=== PATIENT | female | born 1960 | race Caucasian/White ===

== ENCOUNTER 2021-01-12 07:51 | Day surgery (SDC) | payer OTHER ==
[2021-01-12] MEDS ORDERED: Ringers Lactate 1,000 ML IV ONE (08:51)
[2021-01-12] MEDS ORDERED: LIDOCAINE 1% MPF 5 ML VIAL ONE (09:17)
[2021-01-12] MEDS ORDERED: propofoL 200 MG/20 ML VIAL IV ONE ×3 (09:17→10:39)
--- NOTE | 2021-01-12 10:35 | ENDO RPT ---
[address], [address] COLONOSCOPY PROCEDURE REPORT EXAM DATE: 01/12/2021 PATIENT NAME: Aleja Ferrer MR #: [id number] BIRTHDATE: 1960 ATTENDING: Lazarus Lomax DR STATUS: outpatient SENIOR RESEARCH SCIENTIST: Gisell BHATIA and Valeria Mcclelland CST INDICATIONS: The patient is a 60 yr old Female here for a colonoscopy due to colon cancer screening PROCEDURE PERFORMED: Flexible Sigmoidoscopy MEDICATIONS: Per Anesthesia. ESTIMATED BLOOD LOSS: None CONSENT: The patient understands the risks and benefits of the procedure and understands that these risks include, but are not limited to: sedation, allergic reaction, infection, perforation and/or bleeding. Alternative means of evaluation and treatment include, among others: physical exam, x-rays, and/or surgical intervention. The patient elects to proceed with this endoscopic procedure. DESCRIPTION OF PROCEDURE: During intra-op preparation period all mechanical medical equipment was checked for proper function. Hand hygiene and appropriate measures for infection prevention was taken. Procedure, possible complications, alternatives including, but not limited to possibility of bleeding, perforation, tear, infection, sepsis, need for surgery, need for blood transfusion, were explained to the patient. After the risks, benefits and alternatives of the procedure were thoroughly explained, Informed consent was verified, confirmed and timeout was successfully executed by the treatment team. The patient was placed in the left lateral position. A digital rectal exam was performed and revealed internal hemorrhoids. After appropriate level of anesthesia, the scope was passed. The EC-[id number] ([id number]) and [id number] ([id number]) endoscope was introduced through the anus and advanced to the hepatic flexure. The quality of the prep was poor. The instrument was then slowly withdrawn as the colon was fully examined. Scope withdrawal time was 60 minutes. COLON FINDINGS: Small internal hemorrhoids were found. Diverticula was found in the sigmoid colon. The opening was small. Retroflexed views revealed no abnormalities. The scope was then completely withdrawn from the patient and the procedure terminated. ADVERSE EVENTS: There were no complications. IMPRESSIONS: 1. Small internal hemorrhoids 2. Diverticula in the sigmoid colon RECOMMENDATIONS: 1. avoid NSAIDS for 2 weeks 2. follow-up: office 1 week(s) 3. Monitor for any evidence of rectal bleeding. 4. yearly hemoccult starting in 4 years 5. yearly hemoquant RECALL: Return in 2 week(s) for Colonoscopy. inadequate, unable to complete Lazarus Lomax DR eSigned: Lazarus Lomax DR 01/12/2021 10:35 AM cc: CPT CODES: ICD9 CODES:
[2021-01-12] MEDS ORDERED: NA CHLORIDE 0.9% 1,000 ML ONE (10:39)
[2021-01-12 11:38] VITALS: TEMP 97.1; O2SAT 100
[2021-01-12 11:40] VITALS: BP 134/65
== END 2021-01-12 11:15 | disposition home health service (06) ==
LOC: OR 07:51
PROVIDERS: ATTEND Surgery
PROC: 0DJD8ZZ Inspection of Lower Intestinal Tract, Via Natural or Artificial Opening Endoscopic (ICD-10-PCS; principal; 2021-01-12 09:45)
DX: Z12.11 Encounter for screening for malignant neoplasm of colon (principal); K64.8 Other hemorrhoids; K57.30 Diverticulosis of large intestine without perforation or abscess without bleeding; Z53.8 Procedure and treatment not carried out for other reasons; Z20.822 Contact with and (suspected) exposure to COVID-19
CPT/HCPCS: 45378; U0003; J2704 ×3; J7120; J7030

== ENCOUNTER 2021-02-24 08:14 | Day surgery (SDC) | payer OTHER ==
[2021-02-20 14:53] LABS: Absolute Lymphocytes (CBC) 1.6 K/uL (0.7-4.9); Hematocrit 38.4 % (36.0-45.0); Lymphocytes % 19.5 % (15.3-44.8); MPV 8.5 fL (7.6-11.3); RBC Red Blood Cell Count 4.15 M/uL (3.86-4.86)
[2021-02-20 14:59] LABS: Urine Appearance CLEAR (Clear); Urine Bilirubin NEGATIVE (Negataive); Urine Blood 2+ (Negative); Urine Color YELLOW (Yellow); Urine Glucose NEGATIVE (Negative); Urine Protein NEGATIVE (Negative); Urine Urobilinogen 0.2 mg/dL (0.2-1.0); Urine pH 5.5 (5.0-7.0)
[2021-02-20 15:04] LABS: BUN Blood Urea Nitrogen 23 mg/dL (7-18); Bicarbonate 27 mmol/L (21-32); Glucose Level 75 mg/dL (74-106); Sodium Level 139 mmol/L (136-145)
[2021-02-20 15:09] LABS: Protime INR 0.97
[2021-02-20 15:27] LABS: Urine Microscopic Reflex ORDER UMIC
[2021-02-20 15:32] LABS: Urine Bacteria 20-50 /HPF (<20)
[2021-02-24] MEDS ORDERED: LIDOCAINE 2% MPF 5 ML VIAL ONE ×2 (08:27→10:19)
[2021-02-24] MEDS ORDERED: ONDANSETRON 4 MG/2 ML VIAL ONE ×3 (08:27→11:25)
[2021-02-24] MEDS ORDERED: ROCURONIUM 50 MG/5 ML VIAL IV ONE ×2 (08:27→10:19)
[2021-02-24] MEDS ORDERED: FENTANYL CITR 100 MCG/2 ML ONE ×3 (08:27→11:43)
[2021-02-24] MEDS ORDERED: MIDAZOLAM HCL 2 MG/2 ML INJ ONE ×2 (08:27→10:19)
[2021-02-24] MEDS ORDERED: propofoL 200 MG/20 ML VIAL IV ONE ×2 (08:27→10:19)
[2021-02-24] MEDS ORDERED: CEFAZOLIN/SWI 2gm 2 GM/20 ML SYR ONE (08:39)
[2021-02-24] MEDS ORDERED: Ringers Lactate 1,000 ML IV ONE ×2 (08:39→11:13)
[2021-02-24] MEDS: VASOPRESSIN 20 UNIT/ML VIAL ONE ×2 (10:31→11:00)
[2021-02-24] MEDS ORDERED: NA CHLORIDE 0.9% 1,000 ML ONE (10:32)
[2021-02-24] MEDS ORDERED: NA CHLORIDE 0.9% 100 ML IV ONE (10:32)
[2021-02-24] MEDS ORDERED: CEFAZOLIN/SWI 1gm 1 GM/10 ML SYR ONE (10:32)
[2021-02-24] MEDS ORDERED: NS 0.9% VIAL 10 ML ONE ×2 (10:44→12:52)
[2021-02-24] MEDS ORDERED: VECURONIUM 10 MG/VIAL IV ONE ×2 (10:44→12:52)
[2021-02-24] MEDS ORDERED: dexAMETHasone 10 MG/ML VIAL ONE (11:09)
[2021-02-24] MEDS ORDERED: KETOROLAC 30 MG/ML INJ ONE (11:09)
[2021-02-24] MEDS ORDERED: GLYCOPYRROLATE 0.2 MG/ML SYR ONE (12:56)
[2021-02-24] MEDS ORDERED: NEOSTIGMINE 1 MG/ML -5 ML ONE (12:56)
[2021-02-24] MEDS ORDERED: ALBUTEROL INHALER 60 PUFF/8 GM IH ONE (13:20)
[2021-02-24] MEDS ORDERED: HYDROCODONE/APAP 5/325 MG TAB ONE (15:15)
[2021-02-24 15:22] VITALS: TEMP 99
[2021-02-24 17:05] VITALS: BP 108/55
[2021-02-24 17:11] VITALS: O2SAT 95
--- NOTE | 2021-03-08 02:53 | OP ---
Date of Procedure: 02/24/2021 Surgeon: Daphne Fatima MD Environmental Services Manager: Cherie Whyte. Preoperative Diagnoses: Stage III posterior wall prolapse, perineal body defect, stress urinary inco ntinence. Postoperative Diagnoses: Stage III uterovaginal prolapse, posterior wall prolapse, posterior enteroc dominick, perineal body defect, and stress urinary incontinence. Procedures Performed: 1.Right sacrospinous ligament fixation and cervical colpopexy. 2.Posterior wall repair and posterior enterocele repair (rectocele and posterior enterocele repair). 3.Perineorrhaphy and cystoscopy. 4.Mid urethral sling, TVT-O. Anesthesia: General endotracheal. Estimated Blood Loss: 100. Urine Output: 100. Specimens: None. Complications: None. Drains: Cardona catheter and vaginal packing. Condition: Stable. Findings: Large posterior enterocele was noted. She had a site-specific defect of the attachment of the proximal rectovaginal septum from the pericervical ring. The cysto at the end was negative. He r POP-Q prior to the start of the procedure, -2, -2, -1, 5, moderate 0, -1, +3, 0, and after the proc edure was complete, her anterior vaginal wall was straightened out, apex was -8, and posterior wall d efect was completely reduced. Indications: The patient is a 60-year-old female, who presented with vaginal bulge symptoms, worseni ng over a long period of time, also has some defecatory dysfunction, both due to motility abnormaliti es as well as evacuation problems. She also had complaints of stress urinary incontinence. She was evaluated with urodynamics and cystoscopy in the office, which were indicative of the same. She was counseled on the alternatives including a pessary for surgery, surgical options of vaginal repairs. Hysterectomy was not a suitable procedure as this would not change the way that her prolapse could be repaired. So, the uterus was evaluated to see if there is any pathology in the absence of postmenop ausal bleeding. She did not need any of these procedures. She was counseled on the mid urethral sli ng option and pelvic floor muscle therapy was started, and she did well during the therapy and had de finitely increased muscle tone and knowledge of the use of her pelvic floor muscles. She wanted to proceed with the surgical treatment option. She understood that the outcome would not improve the frequency of her bowel movements, mostly evacuation difficulties she encounters and she w as taken to the OR. Procedure In Detail: A 2 g of Ancef were given. Her daughter was present at the preop. We discusse d about the procedure again, recovery, expectations, and prognosis. She was then taken back to the O R. A 2 g of Ancef were given. She was placed in supine fashion on the operating table. General ane sthesia was given. She was placed in a dorsal lithotomy position and pelvic exam was performed. The POP-Q is -2, -2, -1, 5, moderate, 7, -1, +3, and 0. Plan was to perform an apical repair with the r ight sacrospinous fixation colpopexy, reattach the rectovaginal septum since it appeared to be an api jorge defect and repair of the perineal body. Biologic graft was needed. It was on standby. Lower abdomen, vulva, vagina, and perineum were prepped and draped in a sterile fashion. Cardona was p laced to drain the bladder and retracted superiorly after clamping it. Then, 2 Allis clamps were bea wai on the cervix. Posterior vaginal wall was assessed at the medial ends of the hymen, which were s eparated further. Allis clamps were placed, 1 in the mid posterior wall, and dilute vasopressin was injected at least 30 cc in the midline as well on the sides. A brenden shaped vaginal epithelial inc ision was made with a 15 blade in the distal half of the canal joining at the proximal part of the ve stibule. Then, vaginal epithelium and subepithelium was excised from the connective tissue keeping t his very thin and leaving the rectovaginal septal connective tissue together. The vaginal epithelial edges from the proximal parts were held with Allis clamps and connective tissue was dissected away a nd the rectovaginal septum was completely dissected free and it had no sideways detachment defect. D istally, there appeared to be perineal body defect and the rectovaginal septum appeared to be separat ed partially from the perineal body. Once the dissection was carried into the top half of the vagina l canal in the center, the enterocele was very evident. The enterocele was dissected free all the wa y to the pericervical ring. Once the enterocele was completely identified in its full extent and was dissected and exposed, then enterocele repair was performed with 2-0 Vicryl stitch in a pursestring fashion x2. Once this enterocele was completely reduced, then the proximal rectovaginal septum of th e connective tissue was clearly visible without any detachment on the sides, only detached from the p ericervical ring. So at this time, plan was to find the distal uterosacral ligaments or the remnants of it, which were easily identifiable after the cervix was held on the Allis clamps and tied superio rly. Then, the areas of the uterosacral ligament were clamped with Allis clamps. Then, plan was to not do a bilateral fixation, but do a unilateral fixation with reattachment of the septum here. So, the right pararectal space was dissected by going on top of the connective tissue in that plane towar ds the ischial spine. Once this was detached and spared, the pararectal space was entered. Then, th e sacrospinous ligament was cleaned by sweeping the fingers lateral to medial and posteriorly towards the coccyx. Once the rectum was cleared from this area and the connective tissue was cleared to exp ose the sacrospinous ligament in the coccygeus muscle. Then in mid ligament, I was able to get the C apio device, Prolene suture was placed, then another 1 was placed lateral to it between the ischial s pine and the stitch, which was at least 1 to 2 cm from the ischial spine. Once both of these sutures were placed through the ligament, they were held on 2 separate hemostats, curved and straight, and m arked medial and lateral. Then, the next step was to reattach these to the distal uterosacral ligame nts in the pericervical ring. Each of the sutures were passed through both. Then, the distal rectov aginal septum was taken with a 2-0 PDS and reattached the pericervical ring taking the more left late ral aspect of the distal septum. This was attached here, so that when this was all deviated that the re would not be large left paravaginal posterior wall defect. Once these PDS sutures were placed fro m the proximal septum to the paracervical ring, these were held on clamps as well retracting inferior ly. The vaginal epithelium was drawn down in order to perform a pull-down procedure advancing the va ginal epithelium over the defect already exposed. Then once the vaginal closure was started with a 2 -0 Vicryl in a continuous running fashion about 1 cm running this, then went ahead and tied the PDS s utures of the septum to the pericervical ring, cut these knots, then took the Prolene sutures all the way to the uterosacral and tied both of them without leaving a bridge or a gap between the cervix an d the ligament. Once this was done, there was an excellent pull-up and there was a lift of the perin eal body as well. Then, vaginal epithelial closure was performed with a 2-0 Vicryl in a continuous r unning horizontal mattress fashion. The trimming and going to the right and left lateral aspects of the distal wall was done, so that there was good apposition without excessive tissue of the vaginal e pithelium. Once this was trimmed, a transverse closure was started as well after the vertical closur e was complete. Then once a centimeter of the transverse vaginal epithelial closure was done, then w ent ahead and dissected the perineal body as the perineal body was repaired with three 2-0 Vicryl int errupted sutures having a finger in the rectum, making sure that I was able to get good bites from th e lateral aspects in the midline. Once this was done, did not go as far as the levators, the deep tr ansverse perineum were dissected and brought together. After these 3 sutures were tied, the gloves w ere changed and the transverse incision was closed from [id number] and the perineal body was closed with the help of 3-0 Vicryl in a subcutaneous and subcuticular fashion and knot tied inside the vest ibule. Rectal exam was negative for any sutures in the rectum. No injury noted. Same thing at the sacrospinous and was palpated through the rectum. After gloves were changed, mid urethral area was held with 2 Allis clamps, injected with dilute vasop ressin on the midline as well as on the both sides. The dissection was performed underneath the conn ective tissues going towards the ipsilateral obturator space, hugging the inferior pubic ramus, and e ntering into 45 degree angle to the horizontal and vertical planes. Obturator space was entered. Th e tips of the scissors were opened up and the track was widened. Similar dissection on both sides. Then, the wing guide was placed on the right side and spike was passed. The exit point was 2 cm late ral to the groin fold above, a centimeter higher than the horizontal line drawn at the level of the e xternal meatus, at least 2 cm below the adductor tendon. On the right side, similar pass and on the left side as well without any problems. Then, the plastic dilator and sheath and mesh were cut and K daniel clamps holding this tensioned the sling with nets in the middle. Then, the plastic sheath was p ulled out and the mesh trimmed flush with the skin. The skin closed with Dermabond and vaginal epith elium closed with 3-0 Vicryl in a continuous running fashion. Cardona was removed. Cystoscopy was per formed. Excellent jets of urine from both ureteric orifices. No evidence of any trauma to the bladd er and no evidence of any mesh. Cardona was replaced. Vaginal packing was done loosely. She was chang alexandra from anesthesia and taken to PACU in stable condition. Plan was discharged the same day and a voiding trial later. The patient tolerated the procedure well. EBL was minimal, 100. Her daughter was debriefed on the findings and the procedure and she was discharged home the same day. RAEANN/MARCOS Voice ID: [id number] Report ID: [id number]
== END 2021-02-24 16:50 | disposition home or self-care (01) ==
LOC: PRE 08:14
PROVIDERS: ATTEND Obstetrics & Gynecology
PROC: 0HQ9XZZ Repair Perineum Skin, External Approach (ICD-10-PCS; 2021-02-24)
PROC: 0TSD0ZZ Reposition Urethra, Open Approach (ICD-10-PCS; 2021-02-24)
PROC: 0USG7ZZ Reposition Vagina, Via Natural or Artificial Opening (ICD-10-PCS; principal; 2021-02-24 09:30)
DX: N81.2 Incomplete uterovaginal prolapse (principal); N39.3 Stress incontinence (female) (male); N81.6 Rectocele; N95.2 Postmenopausal atrophic vaginitis; F17.210 Nicotine dependence, cigarettes, uncomplicated; Z20.822 Contact with and (suspected) exposure to COVID-19
CPT/HCPCS: 57282; 57250; 57288; 87088; 85025; 87086; 80048; 36415; 86900; 86850; 85610; 86901; 85730; U0003; J2704 ×2; J2250 ×2; J3010 ×3; J1100; J2710; J0690 ×2; J7120 ×2; J7030; J2405 ×3; 81003; 81015